=== PATIENT | male | born 1980 | race African-American/Black ===

== ENCOUNTER 2022-11-07 09:31 | Day surgery (SDC) | payer OTHER ==
[2022-11-02 14:14] VITALS: BMI 29.1
[2022-11-07 10:15] VITALS: TEMP 97.9
[2022-11-07 12:10] VITALS: BP 106/58; PULSE 58; RESP 18
== END 2022-11-07 12:45 | disposition home or self-care (01) ==
LOC: FASU-ENDO 09:31
PROVIDERS: ATTEND Internal Medicine Gastroenterology
PROC: 0DBM8ZX Excision of Descending Colon, Via Natural or Artificial Opening Endoscopic, Diagnostic (ICD-10-PCS; 2022-11-07)
PROC: 0DBK8ZX Excision of Ascending Colon, Via Natural or Artificial Opening Endoscopic, Diagnostic (ICD-10-PCS; principal; 2022-11-07 11:19)
DX: K64.8 Other hemorrhoids (principal); K63.89 Other specified diseases of intestine; R10.31 Right lower quadrant pain
CPT/HCPCS: 88305-TC